=== PATIENT | female | born 1980 ===

== ENCOUNTER 2022-07-14 09:24 | Outpatient (CLI) | payer OTHER | END 2022-07-14 09:27 | disposition home or self-care (01) | LOC: SONOGRAMA 09:24 | PROVIDERS: ATTEND Pathology Anatomic Pathology & Clinical Pathology | DX: D34 Benign neoplasm of thyroid gland (principal); E04.9 Nontoxic goiter, unspecified; E04.2 Nontoxic multinodular goiter ==